=== PATIENT | female | born 1975 | race African-American/Black ===

== ENCOUNTER 2016-07-24 04:47 | Emergency (ER) | payer SELFPAY ==
[2016-07-24 04:57] VITALS: BP 129/56
--- NOTE | 2016-07-24 07:16 | ER Document Report ---
ED General - General Chief Complaint: Sore Throat Stated Complaint: SORE THROAT TRAVEL OUTSIDE OF THE [place].S. IN LAST 30 DAYS: No - Related Data Allergies/Adverse Reactions: latex [Latex] Allergy (Verified 07/24/16 04:53) Past Medical History - Social History Smoking Status: Unknown if Ever Smoked Family History: Reviewed & Not Pertinent, CAD, CVA, Hyperlipidemia, Hypertension Patient has suicidal ideation: No Patient has homicidal ideation: No - Past Medical History Cardiac Medical History: Denies: Hx Coronary Artery Disease, Hx DVT, Hx Heart Attack, Hx Hypertension , Hx Pulmonary Embolism Pulmonary Medical History: Denies: Hx Asthma, Hx Bronchitis, Hx COPD, Hx Pneumonia Renal/ Medical History: Denies: Hx Peritoneal Dialysis Musculoskeltal Medical History: Reports Hx Arthritis - tendonitis, Reports Hx Fibromyalgia Past Surgical History: Reports: Hx Abdominal Surgery - liver biopsy benign tumor , Hx Cholecystectomy, Hx Tubal Ligation. Denies: Hx Hysterectomy - Immunizations Immunizations up to date: Yes Hx Diphtheria, Pertussis, Tetanus Vaccination: Yes Physical Exam - Vital signs Vitals: Temp Pulse Resp BP Pulse Ox 98.1 F 84 18 129/56 H 100 07/24/16 04:53 07/24/16 04:53 07/24/16 04:53 07/24/16 04:53 07/24/16 04:53 Course - Re-evaluation Re-evalutation: 07/24/16 07:15 Work was picked up however upon entering the room patient had eloped patient was never examined by myself - Vital Signs Vital signs: Temp Pulse Resp BP Pulse Ox 98.1 F 84 18 129/56 H 100 07/24/16 04:53 07/24/16 04:53 07/24/16 04:53 07/24/16 04:53 07/24/16 04:53 Discharge - Discharge Clinical Impression: eloped Disposition: ELOPED
== END 2016-07-24 06:30 | disposition left against medical advice (07) ==
LOC: ER 04:47
DX: J02.9 Acute pharyngitis, unspecified (principal); Z91.040 Latex allergy status; Z90.49 Acquired absence of other specified parts of digestive tract; Z98.51 Tubal ligation status

== ENCOUNTER 2016-10-05 20:25 | Emergency (ER) | payer OTHER ==
--- NOTE | 2016-10-05 21:42 | RADIOLOGY REPORT (SQ) ---
EXAM DESCRIPTION: KNEE RIGHT 4 VIEWS COMPLETED DATE/TIME: 10/05/2016 9:34 pm REASON FOR STUDY: pain COMPARISON: None. NUMBER OF VIEWS: Four views. TECHNIQUE: AP, lateral, and both oblique radiographic images acquired of the right knee. LIMITATIONS: None. FINDINGS: MINERALIZATION: Normal. BONES: No acute fracture or dislocation. No worrisome bone lesions. JOINT: No effusion. SOFT TISSUES: No soft tissue swelling. No radio-opaque foreign body. OTHER: No other significant finding. IMPRESSION: NEGATIVE STUDY OF THE RIGHT KNEE. NO RADIOGRAPHIC EVIDENCE OF ACUTE INJURY. TECHNICAL DOCUMENTATION: JOB ID: [id number] [employer]- All Rights Reserved
--- NOTE | 2016-10-05 23:27 | ER Document Report ---
ED Extremity Problem, Lower - General TRAVEL OUTSIDE OF THE [place].S. IN LAST 30 DAYS: No - HPI Location: Knee - right Occurred: Other - 3 weeks Associated symptoms: Other - see above - General Chief Complaint: Knee Pain Stated Complaint: LEG PAIN/DIZZY Time Seen by Provider: 10/05/16 23:10 Notes: Patient is a 41 year old female who presents to the ED with complaints of right knee pain and swelling x3 weeks. Patient denies any recent injury or injury in the past to that knee. Patient states she has a history of fluid retention. Patient has used Epsom salt soaks with no relief. Patient sees a Rhematologist at [place] for Rheumatoid arthritis and states she tried to make an appointment with him but is unable to get in until February. Patient is not on any daily medication as she is being seen and treated for liver masses in [place]. Patient denies a history of DVT. Patient states that she was dizzy but that it is chronic due to fluid behind her ear. No other concerns or complaints at this time. (FABY SALAMANCA) - Related Data Allergies/Adverse Reactions: latex [Latex] Allergy (Verified 07/24/16 04:53) Past Medical History - General Information source: Patient - Social History Smoking Status: Unknown if Ever Smoked Family History: Reviewed & Not Pertinent, CAD, CVA, Hyperlipidemia, Hypertension Patient has suicidal ideation: No Patient has homicidal ideation: No - Past Medical History Cardiac Medical History: Denies: Hx Coronary Artery Disease, Hx DVT, Hx Heart Attack, Hx Hypertension , Hx Pulmonary Embolism Pulmonary Medical History: Denies: Hx Asthma, Hx Bronchitis, Hx COPD, Hx Pneumonia Renal/ Medical History: Denies: Hx Peritoneal Dialysis Musculoskeltal Medical History: Reports Hx Arthritis - tendonitis, Reports Hx Fibromyalgia Past Surgical History: Reports: Hx Abdominal Surgery - liver biopsy benign tumor , Hx Cholecystectomy, Hx Tubal Ligation. Denies: Hx Hysterectomy - Immunizations Immunizations up to date: Yes Hx Diphtheria, Pertussis, Tetanus Vaccination: Yes Review of Systems - Review of Systems Constitutional: No symptoms reported EENT: No symptoms reported Cardiovascular: See HPI, Dizziness - chronic Respiratory: No symptoms reported Gastrointestinal: No symptoms reported Genitourinary: No symptoms reported Female Genitourinary: No symptoms reported Musculoskeletal: See HPI, Joint pain - right knee, Joint swelling - right knee Skin: No symptoms reported Hematologic/Lymphatic: No symptoms reported Neurological/Psychological: No symptoms reported Physical Exam - General General appearance: Appears well, Alert In distress: None - HEENT Head: Normocephalic, Atraumatic Eyes: Normal Extraocular movements intact: Yes Pupils: PERRL - Respiratory Respiratory status: No respiratory distress Chest status: Nontender Breath sounds: Normal Chest palpation: Normal - Cardiovascular Rhythm: Regular Heart sounds: Normal auscultation Murmur: No - Abdominal Inspection: Normal Distension: No distension - Back Back: Normal - Extremities General upper extremity: Normal inspection, Normal ROM General lower extremity: Normal inspection, Normal ROM Calf: Normal, Nontender, Other - no calf swelling like with a DVT - Neurological Neuro grossly intact: Yes Cognition: Normal Orientation: AAOx4 [place] Coma Scale Eye Opening: Spontaneous Wanda Coma Scale Verbal: Oriented Wanda Coma Scale Motor: Obeys Commands Wanda Coma Scale Total: 15 Speech: Normal - Psychological Associated symptoms: Normal affect, Normal mood - Skin Skin Temperature: Warm Skin Moisture: Dry Skin Color: Normal Course - Re-evaluation Re-evalutation: 10/06/16 05:08 Patient with 3-4 week history of right knee pain which she feels is swelling. Denies any injury does have a history of rheumatoid arthritis but is not currently on any medication for that. She denies any injury numbness tingling weakness. She has no recent history of travel surgery immobilization DVT or pulmonary emboli no calf tenderness swelling chest pain or shortness of breath. On examination her knee is well-appearing normal in comparison to the other knee no obvious effusion swelling and is not red hot like a septic joint good pulses and perfusion no calf tenderness or swelling no neurological deficits. Went ahead and give her an x-ray which was negative Grant wrap crutches ice elevation follow-up with primary care physician in 3-4 days and discussed reasons for ED return sooner (ELI CUEVAS) - Vital Signs Vital signs: Temp Pulse Resp BP Pulse Ox 97.4 F 75 18 128/58 H 100 10/06/16 00:51 10/06/16 00:51 10/06/16 00:51 10/06/16 00:51 10/06/16 00:51 Discharge - Discharge Clinical Impression: Right knee pain Qualifiers: Chronicity: chronic Qualified Code(s): M25.561 - Pain in right knee Condition: Stable Disposition: HOME, SELF-CARE Instructions: Knee Immobilizing Splint ([facility]) Additional Instructions: Knee Effusion/knee pain You have a fluid collection in the knee joint, called an effusion. This fluid build up can occur from irritation of the synovial membrane lining the knee joint or from a more serious injury to the knee. Irritation of the membrane can occur from excessive, repetitive knee activitiy, like kneeling or squatting for extended periods or even just excessive walking, jogging, or skiing. Effusions also can occur with infections in the joint and with some arthritic conditions, especially gout. Fluid collections in these situations are usually yellow in color and either clear or cloudy in appearance. Significant injury to the knee can result in fluid collection which is partly or entirely blood and this condition is known as a hemarthrosis of the knee joint. If the fluid collection is not too large and/or painful, it can be managed conservatively with rest, ice packs, and anti-inflammatory and pain medications as needed. If the fluid collection is large and very painful, the knee joint can be drained (aspirated) by a relatively minor procedure of inserting a needle in the joint and removing some or all of the fluid present. If your knee was aspirated, you should rest it as much as possible for a few days, keep a pressure dressing around the knee and apply ice packs for at least 48 - 72 hours. If there are signs of developing infection such as heat and redness of the knee, fever, etc. you should return immediately for a recheck. Referrals: HUMBERTO MIRELES MD [ACTIVE STAFF] - Follow up in 3-5 days (Return to the emergency department sooner for increasing worsening or new symptoms) Jessicaibe Attestation: 10/05/16 23:40 I personally performed the services described in the documentation reviewed the documentation recorded by my scribe in my presence and it accurately and completely records my words and actions (ELI CUEVAS) Scribe Documentation - Scribe Written by Rush:: rush Cornelius, 10/06/2016, 0131 acting as scribe for :: Maurice
[2016-10-06 00:51] VITALS: BP 128/58
== END 2016-10-06 00:52 | disposition home or self-care (01) ==
LOC: ER 20:25
DX: M06.9 Rheumatoid arthritis, unspecified (principal); M25.561 Pain in right knee; G89.29 Other chronic pain; K76.9 Liver disease, unspecified; H93.8X9 Other specified disorders of ear, unspecified ear; R42 Dizziness and giddiness; Z91.040 Latex allergy status
CPT/HCPCS: 99283; 73564; L1830

== ENCOUNTER 2016-11-27 21:01 | Emergency (ER) | payer OTHER ==
[2016-11-27] MEDS ORDERED: ASPIRIN 81 MG TABLET, CHEWABLE PO ONE (21:11)
[2016-11-27 21:27] LABS: ABSOLUTE BASOPHILS # (AUTO) 0.1 10^3/uL (0.0-0.2); ABSOLUTE EOSINOPHILS # (AUTO) 0.1 10^3/uL (0.0-0.6); ABSOLUTE LYMPHOCYTES (AUTO) 3.7 10^3/uL (0.5-4.7); ABSOLUTE MONOCYTES (AUTO) 0.6 10^3/uL (0.1-1.4); ABSOLUTE NEUT (AUTO) 3.9 10^3/uL (1.7-8.2); BASOPHILS % (AUTO) 0.9 % (0-2); EOSINOPHILS % (AUTO) 0.9 % (0-6); HEMATOCRIT 38.5 % (36.0-47.0); HEMOGLOBIN 13.6 g/dL (12.0-15.5); HGB HCT DIFFERENCE 2.3; LYMPHOCYTES % (AUTO) 44.5 % (13-45); MEAN CORPUSCULAR HEMOGLOBIN 32.9 pg (27.0-33.4); MEAN CORPUSCULAR HGB CONC 35.2 g/dL (32.0-36.0); MEAN CORPUSCULAR VOLUME 93 fl (80-97); MONOCYTES % (AUTO) 7.1 % (3-13); RED BLOOD COUNT 4.12 10^6/uL (3.72-5.28); RED CELL DISTRIBUTION WIDTH 13.1 % (11.5-14.0); SEGMENTED NEUTROPHILS % (AUTO) 46.6 % (42-78); WHITE BLOOD COUNT 8.3 10^3/uL (4.0-10.5)
[2016-11-27 21:39] LABS: ALANINE AMINOTRANSFERASE 17 U/L (9-52); ALBUMIN 4.4 g/dL (3.5-5.0); ALKALINE PHOSPHATASE 59 U/L (38-126); ANION GAP 14 (5-19); ASPARTATE AMINO TRANSFERASE 17 U/L (14-36); BILIRUBIN,DIRECT 0.3 mg/dL (0.0-0.4); BILIRUBIN,TOTAL 0.5 mg/dL (0.2-1.3); BLOOD UREA NITROGEN 8 mg/dL (7-20); CARBON DIOXIDE 23 mmol/L (22-30); CHLORIDE 106 mmol/L (98-107); CREATINE KINASE 232 U/L (30-135); CREATININE RESULT 0.76 mg/dL (0.52-1.25); GLUCOSE 121 mg/dL (75-110); POTASSIUM 3.3 mmol/L (3.6-5.0); SODIUM 143.1 mmol/L (137-145); TOTAL PROTEIN 7.3 g/dL (6.3-8.2)
--- NOTE | 2016-11-27 21:49 | RADIOLOGY REPORT (SQ) ---
EXAM DESCRIPTION: CHEST SINGLE VIEW COMPLETED DATE/TIME: 11/27/2016 9:38 pm REASON FOR STUDY: PALPITATIONS COMPARISON: 01/16/2016. EXAM PARAMETERS: NUMBER OF VIEWS: One view. TECHNIQUE: Single frontal radiographic view of the chest acquired. RADIATION DOSE: NA LIMITATIONS: None. FINDINGS: LUNGS AND PLEURA: No opacities, masses or pneumothorax. No pleural effusion. MEDIASTINUM AND HILAR STRUCTURES: No masses. Contour normal. HEART AND VASCULAR STRUCTURES: Heart normal in size. Normal vasculature. BONES: No acute findings. HARDWARE: None in the chest. OTHER: No other significant finding. IMPRESSION: NO ACUTE RADIOGRAPHIC FINDING IN THE CHEST. TECHNICAL DOCUMENTATION: JOB ID: [id number]
[2016-11-27 21:51] LABS: CREATINE KINASE MB 0.68 ng/mL (<4.55)
[2016-11-27 21:56] LABS: TROPONIN I < 0.012 ng/mL
--- NOTE | 2016-11-27 21:59 | ER Document Report ---
ED General - General Chief Complaint: Chest Pain Stated Complaint: CHEST PAIN Time Seen by Provider: 11/27/16 21:33 Notes: Patient is a 41 year old female with a past medical history of a liver mass who presents with intermittent palpitations for the last 3-4 days. She states she had an episode where she felt her heart pounding prior to arrival but states it is now improved. She has no prior history of A. fib, CHF, or ACS. Contrary to triage note, patient denies any chest pain with this episode. She has no history of pulmonary embolus or DVT. She does not use estrogen. She denies any shortness of breath or hemoptysis associated with this episode. Notes that she has had very similar episodes repeatedly in the past but she has not seen a director of instrumental music regarding these episodes. TRAVEL OUTSIDE OF THE U.S. IN LAST 30 DAYS: No - Related Data Allergies/Adverse Reactions: latex [Latex] Allergy (Verified 07/24/16 04:53) Past Medical History - General Information source: Patient - Social History Smoking Status: Never Smoker Frequency of alcohol use: None Drug Abuse: None Lives with: Family Family History: Reviewed & Not Pertinent, CAD, CVA, Hyperlipidemia, Hypertension Patient has suicidal ideation: No Patient has homicidal ideation: No - Past Medical History Cardiac Medical History: Denies: Hx Coronary Artery Disease, Hx DVT, Hx Heart Attack, Hx Hypertension , Hx Pulmonary Embolism Pulmonary Medical History: Denies: Hx Asthma, Hx Bronchitis, Hx COPD, Hx Pneumonia Renal/ Medical History: Denies: Hx Peritoneal Dialysis Musculoskeltal Medical History: Reports Hx Arthritis - tendonitis, Reports Hx Fibromyalgia Past Surgical History: Reports: Hx Abdominal Surgery - liver biopsy benign tumor , Hx Cholecystectomy, Hx Tubal Ligation. Denies: Hx Hysterectomy - Immunizations Immunizations up to date: Yes Hx Diphtheria, Pertussis, Tetanus Vaccination: Yes Review of Systems - Review of Systems Notes: Constitutional: Negative for fever. HENT: Negative for sore throat. Eyes: Negative for visual changes. Cardiovascular: Negative for chest pain. Positive for palpitations Respiratory: Negative for shortness of breath. Gastrointestinal: Negative for abdominal pain, vomiting or diarrhea. Genitourinary: Negative for dysuria. Musculoskeletal: Negative for back pain. Skin: Negative for rash. Neurological: Negative for headaches, weakness or numbness. 10 point ROS negative except as marked above and in HPI. Physical Exam - Vital signs Vitals: Temp Pulse Resp BP Pulse Ox 98.1 F 118 H 20 145/100 H 100 11/27/16 21:08 11/27/16 21:08 11/27/16 21:08 11/27/16 21:08 11/27/16 21:08 Interpretation: Tachycardic Notes: PHYSICAL EXAMINATION: GENERAL: Well-appearing, well-nourished and in no acute distress. HEAD: Atraumatic, normocephalic. EYES: Pupils equal round and reactive to light, extraocular movements intact, sclera anicteric, conjunctiva are normal. ENT: nares patent, oropharynx clear without exudates. Moist mucous membranes. NECK: Normal range of motion, supple without lymphadenopathy LUNGS: Breath sounds clear to auscultation bilaterally and equal. No wheezes rales or rhonchi. HEART: Regular rate and rhythm without murmurs ABDOMEN: Soft, nontender, normoactive bowel sounds. No guarding, no rebound. No masses appreciated. EXTREMITIES: Normal range of motion, no pitting or edema. No cyanosis. NEUROLOGICAL: No focal neurological deficits. Moves all extremities spontaneously and on command. PSYCH: Normal mood, normal affect. SKIN: Warm, Dry, normal turgor, no rashes or lesions noted. Course - Re-evaluation Re-evalutation: 11/27/16 21:57 Patient presents with palpitations but is in no acute distress. Vitals within normal limits at time of arrival. EKG unremarkable with a normal sinus rhythm. Laboratories are unremarkable. Patient denies any chest pain (triage note is an accurate as patient denies any associated chest pain to me repeatedly on examination), shortness of breath, or vomiting. Bedside echocardiogram does not show any evidence of a pericardial effusion. At this time based on exam and history do not suspect a new onset arrhythmia, ACS, acute pulmonary embolus , aortic dissection. Patient encouraged to follow-up with their primary care physician as well as cardiology and a referral has been provided. At this time will discharge with return precautions and follow-up recommendations. Verbal discharge instructions given a the bedside and opportunity for questions given. Medication warnings reviewed. Patient is in agreement with this plan and has verbalized understanding of return precautions and the need for primary care follow-up in the next 24-72 hours. - Vital Signs Vital signs: Temp Pulse Resp BP Pulse Ox 98.1 F 118 H 15 125/59 L 100 11/27/16 21:08 11/27/16 21:08 11/27/16 23:01 11/27/16 23:01 11/27/16 23:01 - Laboratory Result Diagrams: 11/27/16 21:10 11/27/16 21:10 Laboratory results interpreted by me: 11/27/16 21:10 Potassium 3.3 L Glucose 121 H Creatine Kinase 232 H - Diagnostic Test Radiology reviewed: Image reviewed, Reports reviewed Radiology results interpreted by me: 11/27/16 21:58 Chest x-ray: No acute infiltrate or pneumothorax - EKG Interpretation by Me Additional EKG results interpreted by me: 11/27/16 21:58 Sinus tachycardia. Rate 101. No ST elevations or depressions. QTC is 436. Discharge - Discharge Clinical Impression: Palpitations Condition: Good Disposition: HOME, SELF-CARE Additional Instructions: Please follow-up with your primary care doctor or a director of instrumental music regarding your palpitations. Return if you develop chest pain, shortness of breath, pass out, or have any other symptoms that are worrisome to you. Referrals: MAGGIE PENA MD [ACTIVE STAFF] - Follow up in 3-5 days
[2016-11-27 23:29] VITALS: BP 125/59
--- NOTE | 2016-11-28 09:09 | EKG REPORT ---
SEVERITY:- BORDERLINE ECG - SINUS TACHYCARDIA BORDERLINE T WAVE ABNORMALITIES : Confirmed by: Peña Luo MD 28-Nov-2016 09:09:27
== END 2016-11-27 23:37 | disposition home or self-care (01) ==
LOC: ER 21:01
DX: R00.2 Palpitations (principal); R00.0 Tachycardia, unspecified; Z91.040 Latex allergy status; Z82.49 Family history of ischemic heart disease and other diseases of the circulatory system
CPT/HCPCS: 36415; 71010; 80053; 82550; 82553; 84484; 85025; 93005; 93010; 99285

== ENCOUNTER 2016-12-26 21:21 | Emergency (ER) | payer OTHER ==
[2016-12-26 21:39] VITALS: BP 140/78
--- NOTE | 2016-12-27 18:18 | EKG REPORT ---
SEVERITY:- BORDERLINE ECG - SINUS RHYTHM BORDERLINE R WAVE PROGRESSION, ANTERIOR LEADS : Confirmed by: Kathy Morgan MD 27-Dec-2016 18:17:34
== END 2016-12-27 00:20 | disposition left against medical advice (07) ==
LOC: ER 21:21
DX: Z53.21 Procedure and treatment not carried out due to patient leaving prior to being seen by health care provider (principal)
CPT/HCPCS: 93005; 93010

== ENCOUNTER 2017-01-07 01:50 | Emergency (ER) | payer OTHER ==
[2017-01-07 02:05] VITALS: BP 110/58
[2017-01-07 02:52] LABS: ABSOLUTE BASOPHILS # (AUTO) 0.1 10^3/uL (0.0-0.2); ABSOLUTE LYMPHOCYTES (AUTO) 2.2 10^3/uL (0.5-4.7); ABSOLUTE MONOCYTES (AUTO) 0.4 10^3/uL (0.1-1.4); ABSOLUTE NEUT (AUTO) 4.6 10^3/uL (1.7-8.2); EOSINOPHILS % (AUTO) 0.6 % (0-6); HEMATOCRIT 35.3 % (36.0-47.0); HEMOGLOBIN 12.3 g/dL (12.0-15.5); HGB HCT DIFFERENCE 1.6; MEAN CORPUSCULAR HEMOGLOBIN 31.8 pg (27.0-33.4); MEAN CORPUSCULAR HGB CONC 34.7 g/dL (32.0-36.0); MEAN CORPUSCULAR VOLUME 92 fl (80-97); MONOCYTES % (AUTO) 5.2 % (3-13); RED BLOOD COUNT 3.85 10^6/uL (3.72-5.28); SEGMENTED NEUTROPHILS % (AUTO) 63.2 % (42-78); WHITE BLOOD COUNT 7.3 10^3/uL (4.0-10.5)
[2017-01-07 03:15] LABS: ALANINE AMINOTRANSFERASE 26 U/L (9-52); ALBUMIN 4.5 g/dL (3.5-5.0); ALKALINE PHOSPHATASE 57 U/L (38-126); ANION GAP 13 (5-19); ASPARTATE AMINO TRANSFERASE 21 U/L (14-36); BILIRUBIN,DIRECT 0.3 mg/dL (0.0-0.4); BILIRUBIN,TOTAL 0.6 mg/dL (0.2-1.3); BLOOD UREA NITROGEN 7 mg/dL (7-20); CALCIUM 9.5 mg/dL (8.4-10.2); CARBON DIOXIDE 22 mmol/L (22-30); CHLORIDE 108 mmol/L (98-107); CREATINE KINASE 146 U/L (30-135); CREATININE RESULT 0.79 mg/dL (0.52-1.25); GLUCOSE 97 mg/dL (75-110); POTASSIUM 3.9 mmol/L (3.6-5.0); SODIUM 142.9 mmol/L (137-145); TOTAL PROTEIN 7.1 g/dL (6.3-8.2)
[2017-01-07 03:24] LABS: CREATINE KINASE MB 0.48 ng/mL (<4.55); TROPONIN I 0.017 ng/mL
--- NOTE | 2017-01-07 07:48 | EKG REPORT ---
SEVERITY:- DEFECTIVE ECG - SINUS RHYTHM : Confirmed by: Peña Luo MD 07-Jan-2017 07:48:05
== END 2017-01-07 03:00 | disposition left against medical advice (07) ==
LOC: ER 01:50
DX: Z53.21 Procedure and treatment not carried out due to patient leaving prior to being seen by health care provider (principal)
CPT/HCPCS: 36415; 80053; 82550; 82553; 84484; 85025; 93005; 93010

== ENCOUNTER 2017-02-18 20:58 | Observation (INO) | payer OTHER ==
--- NOTE | 2017-02-18 21:22 | ER Document Report ---
ED General <RENEE DARBY - Last Filed: 02/19/17 03:01> - General Mode of Arrival: Ambulatory Information source: Patient TRAVEL OUTSIDE OF THE [place]. 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 with hx TIA (dec.28 sent to [facility] after given [employer] at [place] (was employee and had syncopal episode first) for left arm weakness, pain into left shoulder, could not talk, couldn't move whole left side), started having left arm weakness at 7:30 pm that radiated into left shoulder and upper chest. Hard to catch her breath. No fever. Takes lipitor and aspirin 81 mg per day. No hormones. Saw neurologist in [place] for follow up, used to see dr hernandez, none now. Pt states the weakness in left arm and left leg are getting worse since 7:30 pm. Immediate consult with Dr. streeter. EKG [address] (SABINO NAVARRO) - Related Data Allergies/Adverse Reactions: latex [Latex] Allergy (Verified 01/07/17 02:03) Past Medical History <RENEE DARBY - Last Filed: 02/19/17 03:01> - General Information source: Patient - Social History Smoking Status: Never Smoker Frequency of alcohol use: None Drug Abuse: None Lives with: Family Family History: Reviewed & Not Pertinent, CAD, CVA, Hyperlipidemia, Hypertension Neurological Medical History: Reports: Other - stroke/TIA 2016 Renal/ Medical History: Denies: Hx Peritoneal Dialysis Musculoskeltal Medical History: Reports Hx Arthritis - tendonitis, Reports Hx Fibromyalgia Past Surgical History: Reports: Hx Abdominal Surgery - liver biopsy benign tumor , Hx Cholecystectomy, Hx Tubal Ligation. Denies: Hx Hysterectomy - Immunizations Immunizations up to date: Yes Hx Diphtheria, Pertussis, Tetanus Vaccination: Yes <SABINO NAVARRO - Last Filed: 02/19/17 06:43> Other: fibromyalgia, Rheumatoid arthrits (SABINO NAVARRO) Review of Systems - Review of Systems Constitutional: No symptoms reported EENT: No symptoms reported Cardiovascular: See HPI - states she always has the chest pain due to her RA Respiratory: No symptoms reported Gastrointestinal: No symptoms reported Genitourinary: No symptoms reported Female Genitourinary: No symptoms reported Musculoskeletal: No symptoms reported Skin: No symptoms reported Hematologic/Lymphatic: No symptoms reported Neurological/Psychological: See HPI <SABINO NAVARRO - Last Filed: 02/19/17 06:43> Physical Exam - Vital signs Interpretation: Normal - General General appearance: Appears well, Alert In distress: None - HEENT Head: Normocephalic Eyes: Normal Conjunctiva: Normal Extraocular movements intact: Yes Pupils: PERRL Tympanic membrane: Normal Mouth/Lips: Normal Mucous membranes: Normal Neck: Supple. No: Lymphadenopathy - Respiratory Respiratory status: No respiratory distress Chest status: Tender - left upper chest Breath sounds: Normal Chest palpation: Normal - Cardiovascular Rhythm: Regular Heart sounds: Normal auscultation Murmur: No - Abdominal Inspection: Normal Distension: No distension Bowel sounds: Normal Tenderness: Nontender Organomegaly: No organomegaly - Back Back: Normal, Nontender. No: Tender - Extremities General upper extremity: Normal inspection, Nontender, Normal color, Normal ROM , Normal temperature General lower extremity: Normal inspection, Nontender, Normal color, Normal ROM , Normal temperature, Normal weight bearing. No: Manish's sign Shoulder: Tender - tender posterior left shoulder, left proximal tricep - Neurological Neuro grossly intact: Yes Cognition: Normal Orientation: AAOx4 [place] Coma Scale Eye Opening: Spontaneous Wanda Coma Scale Verbal: Oriented Wanda Coma Scale Motor: Obeys Commands [place] Coma Scale Total: 15 Speech: Normal Motor strength normal: LUE - 3/5, RUE - 5/5, LLE - 3/5, RLE - 5/5 Additional motor exam normals: Weakness - left upper arm and left leg. No: Equal treasury consultant, Involuntary movements Sensory: Normal - Psychological Associated symptoms: Normal affect, Normal mood - Skin Skin Temperature: Warm Skin Moisture: Dry Skin Color: Normal Skin irregularity: negative: Rash <SABINO NAVARRO - Last Filed: 02/19/17 06:43> - Vital signs Vitals: Temp Pulse Resp BP Pulse Ox 99.0 F 119 H 20 145/74 H 100 02/18/17 21:01 02/18/17 21:01 02/18/17 21:01 02/18/17 21:01 02/18/17 21:01 Course - Laboratory Result Diagrams: 02/18/17 21:36 02/18/17 21:36 <RENEE DARBY - Last Filed: 02/19/17 03:01> - Laboratory Result Diagrams: 02/18/17 21:36 02/18/17 21:36 <SABINO NAVARRO - Last Filed: 02/19/17 06:43> - Re-evaluation Re-evalutation: 02/19/17 03:[address] Porter, he refuses admission of patient stating he wants to know what the dc was in june and that he wants patient discharged home. 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 MRI , repeat CT were all negative, 4/5 strength in left upper extremity , no other neuro deficit recommended daily aspirin. I spoke with dr Porter, he requests neuro consult (RENEE DARBY) 02/18/17 21:[address] Head negative. 02/18/17 22:17 Dr. Darby in the room with pt, she now states the left arm weakness started at 7:30 am, "it's been weak and hurting for a minute". The left leg weakness started when she was trying to go up the stairs tonight at 8 PM tonight. He states that she is outside the lytic treatment window. Pt states "maybe it's my nerves" 02/18/17 23:41 pt states the weakness is subsiding. Heart rate 98. Dr. Darby rec she be admitted for TIA. Just got off the phone with dr. porter who states he wants the medical records from [facility], he is not sure it makes sense to admit her here. 02/19/17 01:[address] porter back about pt per dr. darby instructions, [facility] records here, not [facility]. Dr porter states why should he admit her here if her workup was negative at [facility]. I offered for him to talk with Dr benitez and he asked for him to call him. 02/19/17 02:21 wilner carlos has not been able to get in touch with dr. porter as yet, called him X 3, dr porter is not answering the phone nor calling back. 02/19/17 03:[address] Steven Lopez at [facility]. MRI and CT were negative in July after the event. She does not need intervention tonight, just MRI with and without in the morning, get within 24 hours it would be fine, does not to be transferred. Will call dr porter back. 02/19/17 03:51 dr porter agrees to admit the pt. dr. darby states [facility] bed.. (SABINO NAVARRO) - Vital Signs Vital signs: Temp Pulse Resp BP Pulse Ox 98.3 F 96 18 104/57 L 100 02/19/17 00:58 02/19/17 03:00 02/19/17 06:15 02/19/17 06:00 02/19/17 06:15 - Laboratory Laboratory results interpreted by me: 02/18/17 02/18/17 21:36 21:36 Carbon Dioxide 21 L Creatine Kinase 142 H Urine Blood SMALL H Discharge <RENEE DARBY - Last Filed: 02/19/17 03:01> - Discharge Admitting Provider: Hospitalist Unit Admitted: [facility] <SABINO NAVARRO - Last Filed: 02/19/17 06:43> - Discharge Clinical Impression: left sided arm and leg weakness Condition: Stable Disposition: ADMITTED INPATIENT
--- NOTE | 2017-02-18 21:28 | RADIOLOGY REPORT (SQ) ---
EXAM DESCRIPTION: CT HEAD WITHOUT COMPLETED DATE/TIME: 02/18/2017 9:18 pm REASON FOR STUDY: stroke alert COMPARISON: 01/24/2007 TECHNIQUE: Axial images acquired through the brain without intravenous contrast. Images reviewed wi th bone, brain and subdural windows. Images stored on PACS. All CT scanners at this facility use dose modulation, iterative reconstruction, and/or weight based d osing when appropriate to reduce radiation dose to as low as reasonably achievable (ALARA). [facility]: Dose Right [facility]: CareDose [facility]: Dose Right [facility]: Teradose 4D [facility]: Yanado RADIATION DOSE: mGy. LIMITATIONS: None. FINDINGS: VENTRICLES: Normal size and contour. CEREBRUM: No masses. No hemorrhage. No midline shift. No evidence for acute infarction. Normal gra y/white matter differentiation. No areas of low density in the white matter. CEREBELLUM: No masses. No hemorrhage. No alteration of density. No evidence for acute infarction. EXTRAAXIAL SPACES: No fluid collections. No masses. ORBITS AND GLOBE: No intra- or extraconal masses. Normal contour of globe without masses. CALVARIUM: No fracture. PARANASAL SINUSES: No fluid or mucosal thickening. SOFT TISSUES: No mass or hematoma. OTHER: No other significant finding. IMPRESSION: NORMAL BRAIN CT WITHOUT CONTRAST. EVIDENCE OF ACUTE STROKE: NO. COMMENT: Pertinent positive or negative findings of the imaging study reported as a CRITICAL EXAM t o ER PROVIDER at21:20 on 02/18/2017. Category of Critical Exam: Stroke alert Quality ID # [id number]: Final reports with documentation of one or more dose reduction techniques (e.g., Au tomated exposure control, adjustment of the mA and/or kV according to patient size, use of iterative reconstruction technique) TECHNICAL DOCUMENTATION: JOB ID: [id number] [employer]- All Rights Reserved
--- NOTE | 2017-02-18 21:36 | RADIOLOGY REPORT (SQ) ---
EXAM DESCRIPTION: CHEST SINGLE VIEW COMPLETED DATE/TIME: 02/18/2017 9:21 pm REASON FOR STUDY: stroke alert COMPARISON: 01/16/2016 EXAM PARAMETERS: NUMBER OF VIEWS: One view. TECHNIQUE: Single frontal radiographic view of the chest acquired. RADIATION DOSE: NA LIMITATIONS: None. FINDINGS: LUNGS AND PLEURA: No opacities, masses or pneumothorax. No pleural effusion. MEDIASTINUM AND HILAR STRUCTURES: No masses. Contour normal. HEART AND VASCULAR STRUCTURES: Heart normal in size. Normal vasculature. BONES: No acute findings. HARDWARE: None in the chest. OTHER: No other significant finding. IMPRESSION: NO ACUTE RADIOGRAPHIC FINDING IN THE CHEST. TECHNICAL DOCUMENTATION: JOB ID: [id number] [employer]- All Rights Reserved
[2017-02-18 21:54] LABS: ABSOLUTE BASOPHILS # (AUTO) 0.1 10^3/uL (0.0-0.2); ABSOLUTE EOSINOPHILS # (AUTO) 0.1 10^3/uL (0.0-0.6); ABSOLUTE LYMPHOCYTES (AUTO) 3.7 10^3/uL (0.5-4.7); ABSOLUTE MONOCYTES (AUTO) 0.6 10^3/uL (0.1-1.4); ABSOLUTE NEUT (AUTO) 4.8 10^3/uL (1.7-8.2); EOSINOPHILS % (AUTO) 0.8 % (0-6); HEMATOCRIT 37.5 % (36.0-47.0); HGB HCT DIFFERENCE 1.5; MEAN CORPUSCULAR HEMOGLOBIN 31.8 pg (27.0-33.4); MEAN CORPUSCULAR HGB CONC 34.7 g/dL (32.0-36.0); MEAN CORPUSCULAR VOLUME 92 fl (80-97); MONOCYTES % (AUTO) 6.3 % (3-13); RED BLOOD COUNT 4.11 10^6/uL (3.72-5.28); RED CELL DISTRIBUTION WIDTH 13.2 % (11.5-14.0); SEGMENTED NEUTROPHILS % (AUTO) 51.9 % (42-78); WHITE BLOOD COUNT 9.2 10^3/uL (4.0-10.5)
[2017-02-18 21:56] LABS: PARTIAL THROMBOPLASTIN TIME 28.1 SEC (23.5-35.8); PROTHROMBIN TIME 12.1 SEC (11.4-15.4)
[2017-02-18 22:18] LABS: ALANINE AMINOTRANSFERASE 24 U/L (9-52); ALKALINE PHOSPHATASE 65 U/L (38-126); ANION GAP 17 (5-19); ASPARTATE AMINO TRANSFERASE 18 U/L (14-36); BILIRUBIN,DIRECT 0.3 mg/dL (0.0-0.4); BILIRUBIN,TOTAL 0.4 mg/dL (0.2-1.3); BLOOD UREA NITROGEN 13 mg/dL (7-20); CARBON DIOXIDE 21 mmol/L (22-30); CHLORIDE 105 mmol/L (98-107); CREATINE KINASE 142 U/L (30-135); CREATININE RESULT 0.82 mg/dL (0.52-1.25); GLUCOSE 97 mg/dL (75-110); SODIUM 142.5 mmol/L (137-145); TOTAL PROTEIN 7.8 g/dL (6.3-8.2)
[2017-02-18] MEDS ORDERED: LORAZEPAM 1 MG TABLET PO ONE (22:19)
[2017-02-18 22:22] LABS: APPEARANCE,URINE CLEAR; BILIRUBIN,URINE NEGATIVE (NEGATIVE); GLUCOSE, URINE NEGATIVE (NEGATIVE); KETONES,URINE NEGATIVE (NEGATIVE); LEUKOCYTE ESTERASE,URINE NEGATIVE (NEGATIVE); NITRITE,URINE NEGATIVE (NEGATIVE); PROTEIN,URINE NEGATIVE (NEGATIVE); URINE SPECIFIC GRAVITY 1.003; UROBILINOGEN,URINE NEGATIVE mg/dL (<2.0)
[2017-02-18 22:30] LABS: CREATINE KINASE MB 0.38 ng/mL (<4.55)
[2017-02-18 22:32] LABS: TROPONIN I < 0.012 ng/mL
[2017-02-18] MEDS ORDERED: LORAZEPAM INJ 2 MG/1 ML VIAL IV ONE (22:35)
[2017-02-18] MEDS ORDERED: KETOROLAC TROMETHAMINE INJ/PF 30 MG/1 ML SDV IV ONE (22:35)
[2017-02-18 22:36] LABS: URINE BARBITURATES SCREEN NEGATIVE; URINE METHADONE SCREEN NEGATIVE; URINE OPIATES LOW NEGATIVE; URINE PHENCYCLIDINE SCREEN NEGATIVE
[2017-02-18] MEDS ORDERED: ONDANSETRON HCL INJ/PF 4 MG/2 ML SDV IV ONE (22:46)
[2017-02-18] MEDS ORDERED: ASPIRIN 81 MG TABLET, CHEWABLE PO ONE (23:58)
[2017-02-19] MEDS ORDERED: MAGNESIUM HYDROXIDE SUSP 30 ML UDCUP PO PRN (04:23)
[2017-02-19] MEDS ORDERED: ACETAMINOPHEN 325 MG TABLET PO PRN (04:23)
--- NOTE | 2017-02-19 06:12 | PDOC H&P ---
History of Present Illness Admission Date/PCP: 02/19/17 04:18 Patient complains of: Left pain and arm weakness History of Present Illness: KELY DELCID is a 41 year old female with a past medical history of fibromyalgia, osteoarthritis, rheumatoid arthritis, anxiety disorder and TIA who received TPA and was transferred to [facility] December 31 for left leg and arm weakness. She was discharged with the diagnosis of TIA and subsequently undergone 30 day diagnostic cardiac sonographer which was negative. Imaging was unremarkable she was discharged with recommendations for aspirin and statin for which she is discontinued because she does not like the way it makes her feel. She has also discontinued Zoloft because she does not like it. She presents after 2 hours of left shoulder pain and weakness similar to symptoms 6 weeks ago not associated with slurred speech or confusion. Again her workup is unremarkable she states "it could just be my nerves" she receives IV Ativan resolving symptoms to baseline and currently asymptomatic. ER physician obtains neurology consult recommending observation with contrasted and noncontrasted MRI. She is referred to the hospitalist for admission. She has a pressured anxious affect. She states everyone in her family has strokes without residual deficit. Past Medical History Cardiac Medical History: Denies: Atrial Fibrillation, Congestive Heart Failure, Coronary Artery Disease, DVT, Myocardial Infarction, Hyperlipidema, Hypertension, Peripheral Vascular Disease, Pulmonary Embolism, Heart Murmur Pulmonary Medical History: Denies: Asthma, Bronchitis, Chronic Obstructive Pulmonary Disease (COPD), Pneumonia Neurological Medical History: Reports: Other - TIA Denies: Hemorrhagic CVA, Ischemic CVA, Migraine, Multiple Sclerosis, Seizures Endocrine Medical History: Reports: None Renal/ Medical History: Reports: None Malignancy Medical History: Reports: None GI Medical History: Reports: None Musculoskeltal Medical History: Reports: Arthritis - tendonitis, Fibromyalgia Psychiatric Medical History: Reports: Depression, General Anxiety Disorder Hematology: Reports: Anemia Past Surgical History Past Surgical History: Reports: Cholecystectomy, Tubal Ligation Denies: Hysterectomy Social History Information Source: Patient Lives with: Family Smoking Status: Never Smoker Frequency of Alcohol Use: None Drugs: None - Advance Directive Resuscitation Status: Full Code Family History Family History: Arthritis, CAD, CVA, Hyperlipidemia, Hypertension Parental Family History Reviewed: Yes Children Family History Reviewed: Yes Sibling(s) Family History Reviewed.: Yes Medication/Allergy Home Medications: Sertraline HCl [Zoloft] 25 mg PO DAILY 01/07/14 Ciprofloxacin HCl [Cipro 500 mg Tablet] 500 mg PO BID #10 tablet 03/16/16 Metronidazole 500 mg PO BID #10 tablet 03/16/16 Allergies/Adverse Reactions: latex [Latex] Allergy (Verified 01/07/17 02:03) Review of Systems Constitutional: ABSENT: chills, fever(s), headache(s), weight gain, weight loss Eyes: ABSENT: visual disturbances Ears: ABSENT: hearing changes Cardiovascular: ABSENT: chest pain, dyspnea on exertion, edema, orthropnea, palpitations Respiratory: ABSENT: cough, hemoptysis Gastrointestinal: ABSENT: abdominal pain, constipation, diarrhea, hematemesis, hematochezia, nausea, vomiting Genitourinary: ABSENT: dysuria, hematuria Musculoskeletal: ABSENT: joint swelling Integumentary: ABSENT: rash, wounds Neurological: ABSENT: abnormal gait, abnormal speech, confusion, dizziness, focal weakness, syncope Psychiatric: PRESENT: anxiety, depression. ABSENT: homidical ideation, suicidal ideation Endocrine: ABSENT: cold intolerance, heat intolerance, polydipsia, polyuria Hematologic/Lymphatic: ABSENT: easy bleeding, easy bruising Physical Exam Vital Signs: Temp Pulse Resp BP Pulse Ox 98.3 F 96 13 123/69 99 02/19/17 00:58 02/19/17 03:00 02/19/17 04:59 02/19/17 05:00 02/19/17 05:00 General appearance: PRESENT: no acute distress, well-developed, well-nourished Head exam: PRESENT: atraumatic, normocephalic Eye exam: PRESENT: conjunctiva pink, EOMI, PERRLA. ABSENT: scleral icterus Ear exam: PRESENT: normal external ear exam Mouth exam: PRESENT: moist, tongue midline Neck exam: ABSENT: carotid bruit, JVD, lymphadenopathy, thyromegaly Respiratory exam: PRESENT: clear to auscultation clay. ABSENT: rales, rhonchi, wheezes Cardiovascular exam: PRESENT: RRR. ABSENT: diastolic murmur, rubs, systolic murmur Pulses: PRESENT: normal dorsalis pedis pul Vascular exam: PRESENT: normal capillary refill GI/Abdominal exam: PRESENT: normal bowel sounds, soft. ABSENT: distended, guarding, mass, organolmegaly, rebound, tenderness Rectal exam: PRESENT: deferred Extremities exam: PRESENT: full ROM. ABSENT: calf tenderness, clubbing, pedal edema Neurological exam: PRESENT: alert, awake, oriented to person, oriented to place , oriented to time, oriented to situation, CN II-XII grossly intact. ABSENT: motor sensory deficit Psychiatric exam: PRESENT: appropriate affect, normal mood. ABSENT: homicidal ideation, suicidal ideation Skin exam: PRESENT: dry, intact, warm. ABSENT: cyanosis, rash Results Impressions: Chest X-Ray 02/18/17 21:11 IMPRESSION: NO ACUTE RADIOGRAPHIC FINDING IN THE CHEST. Head CT 02/18/17 21:11 IMPRESSION: NORMAL BRAIN CT WITHOUT CONTRAST. EVIDENCE OF ACUTE STROKE: NO. Assessment & Plan - Diagnosis (1) TIA (transient ischemic attack) Is this a current diagnosis for this admission?: Yes Plan: Atypical presentation given history and symptom resolution with IV Ativan, negative event monitor evaluate ESR. Neurology consultation recommending observation for contrasted and noncontrasted MRI. Follow-up MRI continue aspirin and Lipitor (2) Anxiety disorder Is this a current diagnosis for this admission?: Yes Plan: Evaluate thyroid function, trial trazodone every 12 hours, reassurance - Time Time Spent: 30 to 50 Minutes
[2017-02-19] MEDS ORDERED: TRAZODONE HCL 50 MG TABLET PO ONE (07:00)
[2017-02-19] MEDS ORDERED: ASPIRIN 81 MG TABLET, ENT COATED PO SCH (10:00)
--- NOTE | 2017-02-19 11:53 | RADIOLOGY REPORT (SQ) ---
EXAM DESCRIPTION: MRI HEAD COMBO COMPLETED DATE/TIME: 02/19/2017 9:30 am REASON FOR STUDY: left side weakness tia? COMPARISON: CT brain 02/18/2017 TECHNIQUE: Multiplanar imaging includes noncontrasted T1, T2, FLAIR, diffusion with ADC map and post gadolinium contrast T1 sequences. Images stored on PACS. CONTRAST TYPE AND DOSE: 10 mL Multihance. RENAL FUNCTION: GFR > 60. LIMITATIONS: None. FINDINGS: ANATOMY: No anomalies. Normal vascular flow voids. Pituitary fossa normal. CSF SPACES: Normal in size and contour. No hemorrhage. CEREBRUM: Sulci and gyri normal in size and contour. Normal white matter signal on FLAIR imaging. No evidence of hemorrhage, mass, or extraaxial fluid collection. No abnormal enhancement post contrast. POSTERIOR FOSSA: No signal alteration. No hemorrhage. No edema, masses, or mass effect. Internal cheryl tory canals, cerebellopontine angles, mastoids normal. No enhancing lesions. No abnormal enhancement post contrast. DIFFUSION IMAGING: Negative for acute or subacute infarction. ORBITS: No masses. Globes normal. PARANASAL SINUSES: No fluid levels. Mucosa normal. OTHER: No other significant finding. IMPRESSION: NORMAL MRI OF THE BRAIN WITHOUT AND WITH INTRAVENOUS GADOLINIUM CONTRAST. EVIDENCE OF ACUTE STROKE: NO. TECHNICAL DOCUMENTATION: JOB ID: [id number] [employer]- All Rights Reserved
--- NOTE | 2017-02-19 15:55 | PDOC DISCHARGE SUMMARY ---
General - Admit/Disc Date/PCP Admission Date/Primary Care Provider: 02/19/17 04:18 Discharge Date: 02/19/17 - Discharge Diagnosis (1) Anxiety disorder Is this a current diagnosis for this admission?: Yes (2) TIA (transient ischemic attack) Is this a current diagnosis for this admission?: Yes - Additional Information Resuscitation Status: Full Code Discharge Diet: As Tolerated Discharge Activity: Activity As Tolerated Home Medications: Acetaminophen [Tylenol 325 mg Tablet] 650 mg PO Q4HP PRN tablet 02/19/17 Aspirin [Aspirin EC] 81 mg PO DAILY 02/19/17 Aspirin [Ecotrin 81 mg EC Tablet] 81 mg PO DAILY tabec 02/19/17 Atorvastatin Calcium [Lipitor 80 mg Tablet] 80 mg PO QHS tablet 02/19/17 [place]-3/Dha/Epa/Fish Oil [Fish Oil 1,000 mg Softgel] 1,000 mg PO DAILY 02/19/17 History of Present Illness Patient complains of: left arm pain and weakness History of Present Illness: KELY DELCID is a 41 year old female with a past medical history of fibromyalgia, osteoarthritis, rheumatoid arthritis, anxiety disorder and TIA who received TPA and was transferred to [facility] December 31 for left leg and arm weakness. She was discharged with the diagnosis of TIA and subsequently undergone 30 day threat monitoring analyst which was negative. Imaging was unremarkable she was discharged with recommendations for aspirin and statin for which she is discontinued because she does not like the way it makes her feel. She has also discontinued Zoloft because she does not like it. She presents after 2 hours of left shoulder pain and weakness similar to symptoms 6 weeks ago not associated with slurred speech or confusion. Again her workup is unremarkable she states "it could just be my nerves" she receives IV Ativan resolving symptoms to baseline and currently asymptomatic. ER physician obtains neurology consult recommending observation with contrasted and noncontrasted MRI. She is referred to the hospitalist for admission. She has a pressured anxious affect. She states everyone in her family has strokes without residual deficit. she was admitted and evaluated with labs and imaging including head CT, CXR and MRI of brain with and without contrast but no abnormality found. By the time i saw her the symptoms have largely resolved, she still c/o left arm weakness but with distraction her strength is 5/5 bilat. she has only point tenderness over the posterior aspect of the shoulder capsule and seems more like a tendonitis with pain on external rotation but without paresthesias or reproduction of her symptoms. At this point she is stable for d/c home and already has in place f/ u appts with [facility] and [facility]. she is to return for any worsening or recurrence of her symptoms. she and her express no concerns about going home and seem satisfied with her care while here. Physical Exam Vital Signs: Temp Pulse Resp BP Pulse Ox 98.6 F 95 18 125/54 L 100 02/19/17 06:48 02/19/17 12:12 02/19/17 12:12 02/19/17 12:12 02/19/17 12:12 General appearance: PRESENT: no acute distress, thin, well-developed Head exam: PRESENT: atraumatic Eye exam: PRESENT: EOMI. ABSENT: conjunctival injection, nystagmus, scleral icterus Mouth exam: PRESENT: moist, neck supple Neck exam: PRESENT: full ROM. ABSENT: carotid bruit, lymphadenopathy, tenderness, tracheal deviation Respiratory exam: PRESENT: clear to auscultation clay. ABSENT: accessory muscle use Cardiovascular exam: PRESENT: RRR. ABSENT: systolic murmur, tachycardia Pulses: PRESENT: normal carotid pulses, normal radial pulses GI/Abdominal exam: PRESENT: normal bowel sounds, soft. ABSENT: tenderness Extremities exam: ABSENT: pedal edema Musculoskeletal exam: PRESENT: ambulatory, full ROM, normal inspection, other - normal strength bilat with distraction and encouragement. ABSENT: tenderness Neurological exam: PRESENT: alert, awake, oriented to person, oriented to place , oriented to time, oriented to situation, reflexes normal. ABSENT: ataxia, motor sensory deficit, aphasic Psychiatric exam: PRESENT: appropriate affect, normal mood. ABSENT: anxious Focused psych exam: ABSENT: pressured speech, psychomotor agitation, restlessness Skin exam: PRESENT: warm. ABSENT: dry Results Laboratory Results: 02/19/17 06:20 TSH 3.19 Impressions: Chest X-Ray 02/18/17 21:11 IMPRESSION: NO ACUTE RADIOGRAPHIC FINDING IN THE CHEST. Head CT 02/18/17 21:11 IMPRESSION: NORMAL BRAIN CT WITHOUT CONTRAST. EVIDENCE OF ACUTE STROKE: NO. Head MRI 02/19/17 04:25 IMPRESSION: NORMAL MRI OF THE BRAIN WITHOUT AND WITH INTRAVENOUS GADOLINIUM CONTRAST. EVIDENCE OF ACUTE STROKE: NO. Status: Imported from PACS Plan Discharge Plan: f/u with usual providers, return for worsening symptoms Time Spent: Greater than 30 Minutes
[2017-02-19 16:01] VITALS: BP 110/52
[2017-02-19] MEDS ORDERED: ATORVASTATIN CALCIUM 80 MG TABLET PO SCH (22:00)
[2017-02-19] MEDS ORDERED: TRAZODONE HCL 50 MG TABLET PO SCH (22:00)
--- NOTE | 2017-02-20 06:02 | EKG REPORT ---
SEVERITY:- OTHERWISE NORMAL ECG - SINUS TACHYCARDIA : Confirmed by: Kathy Morgan MD 20-Feb-2017 06:02:23
== END 2017-02-19 16:10 | disposition home or self-care (01) ==
LOC: ER 20:58 → EH 02-19 04:18 → INTOOBSV 02-19 04:18 → 3W 02-19 15:18
PROVIDERS: ADMIT Internal Medicine; ATTEND Internal Medicine
DX: G45.9 Transient cerebral ischemic attack, unspecified (principal); F41.9 Anxiety disorder, unspecified; M19.90 Unspecified osteoarthritis, unspecified site; M06.9 Rheumatoid arthritis, unspecified; F32.9 Major depressive disorder, single episode, unspecified; M25.512 Pain in left shoulder; M79.7 Fibromyalgia; Z82.3 Family history of stroke; Z86.73 Personal history of transient ischemic attack (TIA), and cerebral infarction without residual deficits; Z79.899 Other long term (current) drug therapy; Z79.82 Long term (current) use of aspirin; Z90.49 Acquired absence of other specified parts of digestive tract
CPT/HCPCS: 93005; 99285; 96374; 96375; 36415 ×2; 82553; 82962; 82550; 84443; 85025; 85652; 85610; 85730; 81025; 80053; 81001; 84484; 80307; 70553; 71010; 70450; 93010; G0378 ×2; A9577; J1885; J2060; J3490; J2405

== ENCOUNTER 2017-03-23 10:13 | Emergency (ER) | payer OTHER ==
--- NOTE | 2017-03-23 10:43 | ER Document Report ---
ED GI/ - General Chief Complaint: Back Pain Stated Complaint: RIGHT SIDE AND BACK PAIN Time Seen by Provider: 03/23/17 10:29 Mode of Arrival: Ambulatory Information source: Patient Notes: 41-year-old female presents to ED for complaint of right side and back pain. 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 She states that she was told when it got bigger to please come and get a CT. She has a history of TIAs low blood pressure fibromyalgia RA anxiety and liver biopsies and ankle surgery for arthritis. She also had bilateral tubal ligation and gallbladder surgery. TRAVEL OUTSIDE OF THE [place] IN LAST 30 DAYS: No - HPI Patient complains to provider of: Abdominal pain, Flank pain, Other Onset: Other - Intermittent Timing/Duration: Intermittent Quality of pain: Achy, Sharp Severity at maximum: Severe Severity in ED: Severe Pain Level: 5 Location: RUQ, Right flank Vaginal bleeding (Compared to normal period): None Associated symptoms: Radiates to back Exacerbated by: Movement Relieved by: Denies Similar symptoms previously: Yes Recently seen / treated by doctor: Yes - Related Data Allergies/Adverse Reactions: latex [Latex] Allergy (Verified 01/07/17 02:03) Past Medical History - General Information source: Patient - Social History Smoking Status: Never Smoker Cigarette use (# per day): No Chew tobacco use (# tins/day): No Smoking Education Provided: No Frequency of alcohol use: None Drug Abuse: None Lives with: Family Family History: Arthritis, CAD, COPD, CVA, Hyperlipidemia, Hypertension, Malignancy. denies: Thyroid Disfunction Patient has suicidal ideation: No Patient has homicidal ideation: No - Past Medical History Cardiac Medical History: Reports: None Pulmonary Medical History: Reports: None EENT Medical History: Reports: None Neurological Medical History: Reports: None Endocrine Medical History: Reports: None Renal/ Medical History: Reports: None Malignancy Medical History: Reports: None GI Medical History: Reports: Other - States she has liver tumors Musculoskeltal Medical History: Reports Hx Arthritis - tendonitis, Reports Hx Fibromyalgia, Reports Hx Musculoskeletal Deformity Skin Medical History: Reports None Psychiatric Medical History: Reports: Hx Anxiety, Hx Depression Traumatic Medical History: Reports: None Infectious Medical History: Reports: None Past Surgical History: Reports: Hx Abdominal Surgery - liver biopsy benign tumor , Hx Cholecystectomy, Hx Tubal Ligation - Immunizations Immunizations up to date: Yes Hx Diphtheria, Pertussis, Tetanus Vaccination: Yes Review of Systems - Review of Systems Constitutional: No symptoms reported EENT: No symptoms reported Cardiovascular: No symptoms reported Respiratory: No symptoms reported Gastrointestinal: Abdominal pain - Right upper quadrant around to the back Genitourinary: No symptoms reported Female Genitourinary: No symptoms reported Musculoskeletal: Back pain - Right upper back Skin: No symptoms reported Hematologic/Lymphatic: No symptoms reported Neurological/Psychological: No symptoms reported -: Yes All other systems reviewed and negative Physical Exam - Vital signs Vitals: Temp Pulse Resp BP Pulse Ox 98.6 F 99 19 130/61 H 100 03/23/17 10:21 03/23/17 10:21 03/23/17 10:21 03/23/17 10:21 03/23/17 10:21 Interpretation: Normal - General General appearance: Appears well, Alert - HEENT Head: Normocephalic, Atraumatic Eyes: Normal Pupils: PERRL - Respiratory Respiratory status: No respiratory distress Chest status: Nontender Breath sounds: Normal Chest palpation: Normal - Cardiovascular Rhythm: Regular Heart sounds: Normal auscultation Murmur: No - Abdominal Inspection: Normal Distension: No distension Bowel sounds: Normal Tenderness: Tender - Right upper quadrant wound to the back Organomegaly: No organomegaly - Back Back: Normal, Nontender - Extremities General upper extremity: Normal inspection, Nontender, Normal color, Normal ROM , Normal temperature General lower extremity: Normal inspection, Nontender, Normal color, Normal ROM , Normal temperature, Normal weight bearing. No: Manish's sign - Neurological Neuro grossly intact: Yes Cognition: Normal Orientation: AAOx4 Wanda Coma Scale Eye Opening: Spontaneous Morral Coma Scale Verbal: Oriented Morral Coma Scale Motor: Obeys Commands Morral Coma Scale Total: 15 Speech: Normal Motor strength normal: LUE, RUE, LLE, RLE Sensory: Normal - Psychological Associated symptoms: Normal affect, Normal mood - Skin Skin Temperature: Warm Skin Moisture: Dry Skin Color: Normal Course - Re-evaluation Re-evalutation: 03/23/17 15:57 Labs and x-rays discussed with patient and written reports given the patient to follow-up with her primary doctor. No acute changes noted at this time. - Vital Signs Vital signs: Temp Pulse Resp BP Pulse Ox 98.4 F 79 18 124/67 100 03/23/17 15:07 03/23/17 15:07 03/23/17 15:07 03/23/17 15:07 03/23/17 15:07 - Laboratory Result Diagrams: 03/23/17 11:05 03/23/17 13:19 Laboratory results interpreted by me: 03/23/17 11:05 Urine Blood SMALL H Urine Ascorbic Acid 40 H - Diagnostic Test Radiology reviewed: Image reviewed, Reports reviewed Discharge - Discharge Clinical Impression: Right flank pain Right-sided back pain Qualifiers: Back pain location: low back pain Chronicity: unspecified Sciatica presence: without sciatica Qualified Code(s): M54.5 - Low back pain Condition: Stable Disposition: HOME, SELF-CARE Instructions: Family Physicians / Practices, Use of [id number] Ibuprofen ([facility]) Additional Instructions: ABDOMINAL PAIN: There are many causes of abdominal pain. Pain can mean a serious problem requiring surgery (such as appendicitis). It can also be an innocent problem that goes away on its own (such as a viral infection). Often, time must pass to determine the cause of pain. The physician does not feel that hospitalization is necessary, at present. Things may change within the next 24 hours. Call the doctor or come back for re- examination if any problems occur, such as: (1) Pain that becomes more severe, steady, or becomes concentrated in one specific area. Also, pain that is more severe with movement or coughing. (2) Vomiting that persists or becomes more frequent. (3) Blood in the vomitus, urine, or bowel movements. Blood in the stool may have a tarry or black appearance. (4) Shaking chills or fever greater than 100 degrees F. (5) The abdomen becomes more distended or swollen. (6) Bowel movements cease. (7) Failure to improve as expected. Flank Pain We weren't able to prove an exact cause for your flank pain. Pain in the flank can be caused by a muscle strain or spasm. Sometimes a kidney stone causes pain, but can't be found on our tests. Infection in the kidney should be evident on a urine test. Early shingles can occasionally cause flank pain, without the rash that proves the diagnosis. On rare occasions, disease of the pancreas, aorta, spleen, or colon can create pain in the flank. At this time, there's no evidence of a dangerous condition, and it seems safe for you to be at home. If the pain goes away and does not come back, no further testing will be needed. If pain persists, or becomes more severe, we may need to repeat some tests or order additional new testing. Blood in the urine, urgency to urinate frequently, and pain that radiates to the groin can indicate a kidney stone. Fever may mean that the pain is due to infection, either of the kidney or the colon (diverticulitis). If your pain is early shingles, you should develop an eruption of blisters in the painful area within a few days. Call the doctor or return if you have pain that is spreading or becoming more severe, pain that does not resolve with time, fever, or any other new symptoms. ICE PACKS: Apply ice packs frequently against the painful area. Many different schedules are recommended, such as "20 minutes on, 20 minutes off" or "one hour ice, two hours rest." If you need to work, you may need to go longer between ice treatments. You should plan to have the area ice packed AT LEAST one fourth of the time. The ice should be applied over the wrap, tape, or splint, or over a layer of cloth -- not directly against the skin. Some ice bags have a built-in cloth and can be put directly on the skin. WARM PACKS: After approximately two days, apply gentle heat (such as a heating pad or hot water bottle) for about 20 to 30 minutes about every two hours -- at least four times daily. Warmth and elevation will help you make a more rapid recovery , and will ease the pain considerably. Do not use HOT heat, and never apply heat for longer than 30 minutes. The continuous heat can invisibly damage skin and muscles -- even when no burn is seen on the surface. Damaged muscles can make you MORE sore. MUSCLE RELAXERS: Muscle relaxing medications are usually prescribed for acute muscle spasm or injury to the neck and back. They are often combined with antiinflammatory pain medication for increased relief. You may stop the muscle relaxer when the pain and stiffness have improved. Start the medication again if spasms recur. Muscle relaxers may cause drowsiness, especially with the first dose. Do not operate machinery or drive while under the effects of the medication. Most muscle relaxers last up to 24 hours. Do not combine the medication with alcohol. FOLLOW-UP CARE: If you have been referred to a physician for follow-up care, call the physician s office for an appointment as you were instructed or within the next two days. If you experience worsening or a significant change in your symptoms, notify the physician immediately or return to the Emergency Department at any time for re-evaluation. Prescriptions: Cyclobenzaprine HCl [Flexeril 5 mg Tablet] 5 mg PO TID #15 tablet Forms: Return to Work
[2017-03-23 11:20] LABS: ABSOLUTE BASOPHILS # (AUTO) 0.1 10^3/uL (0.0-0.2); ABSOLUTE LYMPHOCYTES (AUTO) 1.8 10^3/uL (0.5-4.7); ABSOLUTE MONOCYTES (AUTO) 0.3 10^3/uL (0.1-1.4); ABSOLUTE NEUT (AUTO) 3.9 10^3/uL (1.7-8.2); BASOPHILS % (AUTO) 0.8 % (0-2); EOSINOPHILS % (AUTO) 0.7 % (0-6); HEMOGLOBIN 13.4 g/dL (12.0-15.5); LYMPHOCYTES % (AUTO) 29.5 % (13-45); MEAN CORPUSCULAR HEMOGLOBIN 30.9 pg (27.0-33.4); MEAN CORPUSCULAR HGB CONC 33.4 g/dL (32.0-36.0); MEAN CORPUSCULAR VOLUME 92 fl (80-97); MONOCYTES % (AUTO) 5.4 % (3-13); PLATELET COUNT 290 10^3/uL (150-450); RED BLOOD COUNT 4.33 10^6/uL (3.72-5.28); RED CELL DISTRIBUTION WIDTH 13.9 % (11.5-14.0); SEGMENTED NEUTROPHILS % (AUTO) 63.6 % (42-78); TOTAL CELLS COUNTED % (AUTO) 100 %; WHITE BLOOD COUNT 6.1 10^3/uL (4.0-10.5)
[2017-03-23 11:23] LABS: APPEARANCE,URINE SLIGHTLY-CLOUDY; BILIRUBIN,URINE NEGATIVE (NEGATIVE); COLOR,URINE YELLOW; GLUCOSE, URINE NEGATIVE (NEGATIVE); KETONES,URINE NEGATIVE (NEGATIVE); LEUKOCYTE ESTERASE,URINE NEGATIVE (NEGATIVE); NITRITE,URINE NEGATIVE (NEGATIVE); PROTEIN,URINE NEGATIVE (NEGATIVE); UROBILINOGEN,URINE NEGATIVE mg/dL (<2.0)
--- NOTE | 2017-03-23 11:57 | RADIOLOGY REPORT (SQ) ---
EXAM DESCRIPTION: CT ABD/PELVIS WITH IV ONLY COMPLETED DATE/TIME: 03/23/2017 11:44 am REASON FOR STUDY: right upper abdominal pain COMPARISON: 11/01/2008 and 07/21/2007. TECHNIQUE: CT scan of the abdomen and pelvis performed using helical scanning technique with dynamic intravenous contrast injection. No oral contrast. Images reviewed with lung, soft tissue, and bone windows. Reconstructed coronal and sagittal MPR images reviewed. Delayed images for evaluation of the urinary system also acquired. All images stored on PACS. All CT scanners at this facility use dose modulation, iterative reconstruction, and/or weight based d osing when appropriate to reduce radiation dose to as low as reasonably achievable (ALARA). [facility]: Dose Right [facility]: CareDose [facility]: Dose Right [facility]: Teradose 4D [facility]: [employer] CONTRAST TYPE AND DOSE: contrast/concentration: Isovue 370.00 mg/ml; Total Contrast Delivered: 61.0 ml; Total Saline Delivered: 65.0 ml RENAL FUNCTION: None required. The patient is less than 50 years old. RADIATION DOSE: CT Rad equipment meets quality standard of care and radiation dose reduction techniq ues were employed. CTDIvol: 6.1 - 14.4 mGy. DLP: 916 mGy-cm.. LIMITATIONS: None. FINDINGS: LOWER CHEST: No significant findings. No nodules or infiltrates. LIVER: Normal size. Multiple hepatic cysts, the largest measuring 1.5 x 2.5 cm. No solid masses. N o dilated ducts. SPLEEN: Normal size. No focal lesions. PANCREAS: No masses. No significant calcifications. No adjacent inflammation or peripancreatic fluid collections. Pancreatic duct not dilated. GALLBLADDER: No identified stones by CT criteria. No inflammatory changes to suggest cholecystitis. ADRENAL GLANDS: No significant masses or asymmetry. RIGHT KIDNEY AND URETER: No solid masses. No significant calcifications. No hydronephrosis or hyd roureter. LEFT KIDNEY AND URETER: No solid masses. No significant calcifications. No hydronephrosis or hydr oureter. AORTA AND VESSELS: No aneurysm. No dissection. Renal arteries, SMA, celiac without stenosis. RETROPERITONEUM: No retroperitoneal adenopathy, hemorrhage or masses. BOWEL AND PERITONEAL CAVITY: No masses or inflammatory changes. No free fluid or peritoneal masses. APPENDIX: Normal. PELVIS: Heterogenous appearance of the uterus with multiple masses, the largest measuring 2.5 cm. No free fluid. Normal bladder. ABDOMINAL WALL: No masses. No hernias. BONES: No significant or acute findings. OTHER: No other significant finding. IMPRESSION: 1. HETEROGENOUS APPEARANCE OF THE UTERUS WITH MULTIPLE MASSES, MOST LIKELY DUE TO UTERINE FIBROIDS. 2. MULTIPLE HEPATIC CYSTS. SIMILAR FINDINGS ON PRIOR STUDIES. 3. NO OTHER SIGNIFICANT OR ACUTE FINDING IN THE ABDOMEN OR PELVIS ON CT SCAN WITH IV CONTRAST. TECHNICAL DOCUMENTATION: JOB ID: [id number] Quality ID # [id number]: Final reports with documentation of one or more dose reduction techniques (e.g., Au tomated exposure control, adjustment of the mA and/or kV according to patient size, use of iterative reconstruction technique) 2010 [employer]- All Rights Reserved
[2017-03-23 14:01] LABS: ALANINE AMINOTRANSFERASE 30 U/L (9-52); ALBUMIN 4.5 g/dL (3.5-5.0); ALKALINE PHOSPHATASE 68 U/L (38-126); ANION GAP 12 (5-19); ASPARTATE AMINO TRANSFERASE 19 U/L (14-36); BILIRUBIN,DIRECT 0.2 mg/dL (0.0-0.4); BILIRUBIN,TOTAL 0.6 mg/dL (0.2-1.3); BLOOD UREA NITROGEN 10 mg/dL (7-20); CALCIUM 9.9 mg/dL (8.4-10.2); CARBON DIOXIDE 23 mmol/L (22-30); CHLORIDE 106 mmol/L (98-107); GLUCOSE 83 mg/dL (75-110); POTASSIUM 4.2 mmol/L (3.6-5.0); SODIUM 140.6 mmol/L (137-145); TOTAL PROTEIN 7.1 g/dL (6.3-8.2)
[2017-03-23 15:07] VITALS: BP 124/67
== END 2017-03-23 15:07 | disposition home or self-care (01) ==
LOC: ER 10:13
DX: M54.5 Low back pain (principal); R10.9 Unspecified abdominal pain; F41.9 Anxiety disorder, unspecified; Z86.73 Personal history of transient ischemic attack (TIA), and cerebral infarction without residual deficits
CPT/HCPCS: 36415; 74177; 80053; 81001; 84703; 85025; 99284